=== PATIENT | female | born 1955 | race Caucasian/White ===

== ENCOUNTER 2017-05-09 01:00 | Observation (INO) ==
[2017-05-09] MEDS ORDERED: SODIUM CHLORIDE 0.9% 1,000 ML IV STA (01:17)
[2017-05-09 02:01] LABS: Basophils % 0.3 % (0.0-0.8); Eosinophils # 0.1 10*3/uL (0.0-0.87); Eosinophils % 1.9 % (0.00-10.9); Hematocrit 27.4 VOL% (35.7-47.0); Hemoglobin 8.1 GM/DL (12.0-16.0); Immature Granulocytes % 0.3 %; Immature Granulocytes Absolute 0.02 #; Lymphocytes # 1.1 10*3/uL (1.4-4.0); Mean Corpuscular HGB Conc 29.6 GM/DL (32-36); Mean Corpuscular Hemoglobin 26 PG (27-34); Mean Corpuscular Volume 88.4 FL (87-102); Mean Platelet Volume 10.1 FL (9.6-12.0); Monocytes # 0.6 10*3/uL (0.11-0.8); Monocytes % 7.7 % (1.7-12.7); Neutrophils # 5.5 10*3/uL (1.4-7.4); Neutrophils % 74.8 % (38.7-73.9); Platelet Count 305 T/CUMM (130-400); Red Cell Distribution Width 20.6 % (9.3-17.3); White Blood Count 7.3 T/CUMM (4-12)
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
[2017-05-09 02:21] LABS: Apearance,Urine CLEAR (Clear); Bilirubin,Urine Negative (Negative); Blood, Urine Negative (Negative); Glucose,Urine (UA) Negative (Negative); Hyaline Casts,Urine 2 /LPF (0-3); Ketones,Urine Negative (Negative); Mucus,Urine Occasional /LPF (Occasional); Nitrite,Urine Negative (Negative); Protein,Urine Negative; Urine Color Straw (Yellow); Urine Specific Gravity 1.012 (1.001-1.035); Urine Urobilinogen < 2.0 EU/DL (0.2-1.0); WBC,Urine <1 /HPF (0-6)
[2017-05-09 02:24] LABS: Alanine Aminotransferase 13 U/L (13-56); Albumin 3.5 G/DL (3.4-5.0); Alkaline Phosphatase 68 U/L (45-117); Aspartate Amino Transferase 10 U/L (0-37); Bilirubin,Total < 0.39 MG/DL (0.2-1.0); Blood Urea Nitrogen 55 MG/DL (7-18); Calcium 8.8 MG/DL (8.5-10.1); Glucose 94 MG/DL (74-106); Osmolality,Calculated 297.1 MOS/KG (273-304); Potassium 4.7 MMOL/L (3.5-5.1); Sodium 142 MMOL/L (136-145); Total Protein 6.8 G/DL (6.4-8.3); Troponin I Only < 0.015 NG/ML (0.00-0.045)
[2017-05-09 03:15] LABS: Ammonia 24 UMOL/L (11-32)
[2017-05-09 03:17] LABS: Barbiturates Screen,Urine Negative (Negative); Benzodiazepines Screen,Urine Positive (Negative); Cannabinoid Screen,Urine Negative (Negative); Opiate Screen,Urine Positive (Negative); Phencyclidine Screen,Urine Negative (Negative)
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
[2017-05-09] MEDS ORDERED: ACETAMINOPHEN 325 MG TABLET PO PRN (04:25)
[2017-05-09] MEDS ORDERED: ONDANSETRON 4 MG/2 ML VIAL IV PRN (04:25)
[2017-05-09] MEDS ORDERED: SODIUM CHLORIDE 0.45% 1,000 ML IV SCH (04:30)
--- NOTE | 2017-05-09 05:57 | EKG Report ---
Stationary ECG Study [facility] ER Test Date: 05/09/2017 1:18:35 AM Pat Name: KATHERINE LLOYD Department: Room: 527 Gender: F Director Of [employer]: : 1955 Requested by: Pedro Pablo Rouse Order Number: [id number] Emilie MD: KIMBERLYN BACON Intervals [place] Rate: 79 P: 80 OR: 164 QRS: 1 QRSD: 110 T: 100 QT: 383 QTc: 418 Interpretive Statements SINUS RHYTHM Electronically Signed On 05-09-17 17:22:19 CDT by KIMBERLYN BACON [email or web address]
--- NOTE | 2017-05-09 07:09 | CT Report ---
History is mental status changes Comparison 11/15/2016 The ventricles are normal in size. No acute intracranial hemorrhage, mass effect, or evidence of acute cortical stroke seen. Impression: No acute intracranial pathology seen. The CT exam was performed using one or more of the following dose reduction techniques: Automated exposure control, adjustment of the mA and/or kV according to patient size, or use of iterative reconstruction technique. PROCEDURE INTERPRETED AT [facility] DEPARTMENT OF RADIOLOGY Final Report Signed by: Dr. Margareth Treviño
--- NOTE | 2017-05-09 07:41 | XRay Report ---
History is altered mental status Comparison 04/19/2017 Heart is mildly enlarged with a large hiatal hernia present. Patient is rotated No congestive failure or confluent infiltrates seen. Minimal basilar scarring again seen. Chronic rib fractures present Impression: 1. Mild cardiomegaly 2. Large hiatal hernia PROCEDURE INTERPRETED AT [facility] DEPARTMENT OF RADIOLOGY Final Report Signed by: Dr. Margareth Treviño
[2017-05-09 08:04] LABS: Calcium 8.1 MG/DL (8.5-10.1); Potassium 4.9 MMOL/L (3.5-5.1)
[2017-05-09] MEDS ORDERED: ENOXAPARIN 30 MG/0.3 ML SYRINGE SUBCUT SCH (09:00)
[2017-05-09] MEDS ORDERED: PANTOPRAZOLE 40 MG TABLET PO SCH (09:00)
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
[2017-05-09 16:32] VITALS: BP 115/77
== END 2017-05-09 18:00 | disposition home or self-care (01) ==
LOC: EDBD → EDUNIT# → N.ED 01:00 → N.EDINP 01:00 → SUATTDRO 04:25 → N.5E 05:39
PROVIDERS: ADMIT Internal Medicine; ATTEND Internal Medicine Nephrology

== ENCOUNTER 2018-04-24 09:59 | Inpatient (IN) ==
[2018-04-24] MEDS ORDERED: SODIUM CHLORIDE 0.9% 1,000 ML IV STA (11:26)
[2018-04-24 11:52] LABS: Basophils % 0.4 % (0.0-0.8); Eosinophils # 0.2 10*3/uL (0.0-0.87); Eosinophils % 2.2 % (0.00-10.9); Hematocrit 31.8 VOL% (35.7-47.0); Hemoglobin 9.9 GM/DL (12.0-16.0); Immature Granulocytes % 0.4 %; Immature Granulocytes Absolute 0.03 #; Lymphocytes % 15.1 % (21.3-54.2); Mean Corpuscular HGB Conc 31.1 GM/DL (32-36); Mean Corpuscular Hemoglobin 29 PG (27-34); Mean Corpuscular Volume 92.2 FL (87-102); Mean Platelet Volume 9.9 FL (9.6-12.0); Monocytes # 0.6 10*3/uL (0.11-0.8); Monocytes % 8.2 % (1.7-12.7); Neutrophils % 73.7 % (38.7-73.9); Platelet Count 263 T/CUMM (130-400); Red Blood Count 3.45 MC/CUMM (3.8-5.5); Red Cell Distribution Width 13.1 % (9.3-17.3); White Blood Count 6.7 T/CUMM (4-12)
[2018-04-24 12:00] LABS: INR 0.9; PT Patient Result 9.8 SECS; Partial Thromboplastin Time 27.5 SECS (0-40)
[2018-04-24 12:15] LABS: Apearance,Urine CLEAR (Clear); Bilirubin,Urine Negative (Negative); Blood, Urine Negative (Negative); Glucose,Urine (UA) Negative (Negative); Ketones,Urine Negative (Negative); Mucus,Urine Occasional /LPF (Occasional); Nitrite,Urine Negative (Negative); Protein,Urine Negative; RBC,Urine <1 /HPF (0-4); Squamous Epithelial Cell,Urine Occasional /HPF (0-10); Urine Color Yellow (Yellow); Urine Urobilinogen < 2.0 EU/DL (0.2-1.0); WBC,Urine 1 /HPF (0-6)
[2018-04-24 12:21] LABS: Alanine Aminotransferase 22 U/L (13-56); Albumin 3.3 G/DL (3.4-5.0); Alkaline Phosphatase 104 U/L (45-117); Aspartate Amino Transferase 42 U/L (0-37); Bilirubin,Total < 0.39 MG/DL (0.2-1.0); Blood Urea Nitrogen 25 MG/DL (7-18); Calcium 9.3 MG/DL (8.5-10.1); Glucose 91 MG/DL (74-106); Osmolality,Calculated 278.7 MOS/KG (273-304); Potassium 5.1 MMOL/L (3.5-5.1); Sodium 138 MMOL/L (136-145); Total Protein 7.6 G/DL (6.4-8.3)
[2018-04-24 12:31] LABS: Free T4 (Free Thyroxine) 0.79 NG/DL (0.76-1.46); Thyroid Stimulating Hormone 0.725 uIU/ml (0.358-3.74)
[2018-04-24] MEDS ORDERED: ALBUTEROL/IPRATROPIUM 3 ML NEB RESP TX PRN (15:52)
[2018-04-24] MEDS ORDERED: ALBUTEROL 2.5 MG/3 ML NEB RESP TX PRN (15:54)
[2018-04-24] MEDS ORDERED: cefTRIAXone 1,000 MG VIAL ONE (16:08)
[2018-04-24] MEDS ORDERED: methylPREDNISolone SOD SUC 40 MG/1 ML VIAL ONE (16:09)
[2018-04-24] MEDS: methylPREDNISolone SOD SUC 40 MG/1 ML VIAL IV SCH ×2 (16:13→23:25)
[2018-04-24] MEDS: cefTRIAXone 1,000 MG in SYRINGE 1 EACH IV SCH (16:27)
[2018-04-24] MEDS: AZITHROMYCIN INJ 500 MG in SODIUM CHLORIDE 0.9% 250 ML IV SCH (16:29)
[2018-04-24] MEDS ORDERED: IBUPROFEN 800 MG TABLET PO PRN (16:48)
[2018-04-24] MEDS: SODIUM CHLORIDE 0.45% 1,000 ML IV SCH (18:20)
[2018-04-24] MEDS: HEPARIN 5,000 UNIT/1 ML VIAL SUBCUT SCH (18:31)
[2018-04-24] MEDS ORDERED: MORPHINE 4 MG/1 ML VIAL IV ONE (20:56)
[2018-04-24] MEDS: ZALEPLON 5 MG CAPSULE PO PRN (21:50)
[2018-04-24] MEDS: ARIPiprazole 5 MG TABLET PO SCH (21:51)
[2018-04-24] MEDS: guaiFENesin/DM ER 600-30 MG TABLET PO SCH (21:51)
[2018-04-25] MEDS: HEPARIN 5,000 UNIT/1 ML VIAL SUBCUT SCH ×3 (03:15→17:58)
[2018-04-25] MEDS: SODIUM CHLORIDE 0.45% 1,000 ML IV SCH ×2 (06:24→20:22)
[2018-04-25 08:55] LABS: Hematocrit 30.2 VOL% (35.7-47.0); Hemoglobin 9.6 GM/DL (12.0-16.0); Immature Granulocytes % 0.7 %; Immature Granulocytes Absolute 0.03 #; Lymphocytes # 0.4 10*3/uL (1.4-4.0); Lymphocytes % 8.3 % (21.3-54.2); Mean Corpuscular HGB Conc 31.8 GM/DL (32-36); Mean Corpuscular Hemoglobin 28 PG (27-34); Mean Corpuscular Volume 88.3 FL (87-102); Mean Platelet Volume 10.1 FL (9.6-12.0); Monocytes % 0.9 % (1.7-12.7); Neutrophils # 4.1 10*3/uL (1.4-7.4); Neutrophils % 90.1 % (38.7-73.9); Platelet Count 257 T/CUMM (130-400); Red Blood Count 3.42 MC/CUMM (3.8-5.5); Red Cell Distribution Width 12.6 % (9.3-17.3); White Blood Count 4.6 T/CUMM (4-12)
[2018-04-25] MEDS: LISINOPRIL/HCTZ 20-12.5 MG TABLET PO SCH (09:05)
[2018-04-25] MEDS: methylPREDNISolone SOD SUC 40 MG/1 ML VIAL IV SCH ×3 (09:05→23:30)
[2018-04-25] MEDS: MULTIVITAMIN (CENTRUM) TABLET PO SCH (09:05)
[2018-04-25] MEDS: guaiFENesin/DM ER 600-30 MG TABLET PO SCH ×2 (09:05→22:36)
[2018-04-25] MEDS: amLODIPine 10 MG TABLET PO SCH (09:05)
[2018-04-25 09:35] LABS: Alanine Aminotransferase 21 U/L (13-56); Albumin 2.9 G/DL (3.4-5.0); Alkaline Phosphatase 91 U/L (45-117); Aspartate Amino Transferase 26 U/L (0-37); Bilirubin,Total < 0.39 MG/DL (0.2-1.0); Blood Urea Nitrogen 27 MG/DL (7-18); Calcium 8.7 MG/DL (8.5-10.1); Glucose 121 MG/DL (74-106); Osmolality,Calculated 284.4 MOS/KG (273-304); Potassium 5.1 MMOL/L (3.5-5.1); Sodium 140 MMOL/L (136-145); Total Protein 7.1 G/DL (6.4-8.3)
[2018-04-25] MEDS ORDERED: ACETAMINOPHEN 325 MG TABLET PO PRN (09:44)
[2018-04-25] MEDS: ACETAMINOPHEN 325 MG TABLET PO PRN (12:03)
[2018-04-25] MEDS: AZITHROMYCIN INJ 500 MG in SODIUM CHLORIDE 0.9% 250 ML IV SCH (16:05)
[2018-04-25] MEDS: cefTRIAXone 1,000 MG in SYRINGE 1 EACH IV SCH (16:09)
[2018-04-25] MEDS: ARIPiprazole 5 MG TABLET PO SCH (22:36)
[2018-04-25] MEDS: ZALEPLON 5 MG CAPSULE PO PRN (22:37)
[2018-04-26] MEDS: ACETAMINOPHEN 325 MG TABLET PO PRN (03:17)
[2018-04-26] MEDS: HEPARIN 5,000 UNIT/1 ML VIAL SUBCUT SCH ×3 (03:19→18:20)
[2018-04-26 07:53] LABS: Basophils % 0.1 % (0.0-0.8); Hemoglobin 9.4 GM/DL (12.0-16.0); Immature Granulocytes % 0.6 %; Immature Granulocytes Absolute 0.06 #; Lymphocytes # 0.6 10*3/uL (1.4-4.0); Lymphocytes % 6.6 % (21.3-54.2); Mean Corpuscular HGB Conc 32.4 GM/DL (32-36); Mean Corpuscular Hemoglobin 28 PG (27-34); Mean Corpuscular Volume 87.6 FL (87-102); Mean Platelet Volume 10.1 FL (9.6-12.0); Monocytes # 0.2 10*3/uL (0.11-0.8); Monocytes % 2.4 % (1.7-12.7); NRBC # 0.02 10*3/uL; Neutrophils # 8.6 10*3/uL (1.4-7.4); Neutrophils % 90.3 % (38.7-73.9); Platelet Count 271 T/CUMM (130-400); Red Blood Count 3.31 MC/CUMM (3.8-5.5); Red Cell Distribution Width 12.9 % (9.3-17.3); White Blood Count 9.5 T/CUMM (4-12)
[2018-04-26] MEDS: methylPREDNISolone SOD SUC 40 MG/1 ML VIAL IV SCH (08:34)
[2018-04-26] MEDS: AZITHROMYCIN 250 MG TABLET PO SCH (08:34)
[2018-04-26] MEDS: MULTIVITAMIN (CENTRUM) TABLET PO SCH (08:35)
[2018-04-26] MEDS: amLODIPine 10 MG TABLET PO SCH (08:35)
[2018-04-26] MEDS: LISINOPRIL/HCTZ 20-12.5 MG TABLET PO SCH (08:35)
[2018-04-26] MEDS: guaiFENesin/DM ER 600-30 MG TABLET PO SCH ×2 (08:35→20:53)
[2018-04-26 08:44] LABS: Alanine Aminotransferase 14 U/L (13-56); Albumin 3.2 G/DL (3.4-5.0); Alkaline Phosphatase 79 U/L (45-117); Aspartate Amino Transferase 14 U/L (0-37); Bilirubin,Total < 0.39 MG/DL (0.2-1.0); Blood Urea Nitrogen 34 MG/DL (7-18); Calcium 8.6 MG/DL (8.5-10.1); Glucose 129 MG/DL (74-106); Osmolality,Calculated 284.7 MOS/KG (273-304); Potassium 4.8 MMOL/L (3.5-5.1); Sodium 138 MMOL/L (136-145)
[2018-04-26] MEDS: DIAZEPAM 5 MG TABLET PO PRN ×2 (09:55→20:53)
[2018-04-26] MEDS: SODIUM CHLORIDE 0.45% 1,000 ML IV SCH ×4 (10:36→23:09)
[2018-04-26] MEDS: CARVEDILOL 6.25 MG TABLET PO SCH ×4 (11:13→20:53)
[2018-04-26 11:28] LABS: Folate 17.8 NG/ML (5.4-24.0)
[2018-04-26] MEDS: cefTRIAXone 1,000 MG in SYRINGE 1 EACH IV SCH (16:51)
[2018-04-26] MEDS: ARIPiprazole 5 MG TABLET PO SCH (20:53)
[2018-04-26] MEDS: ZALEPLON 5 MG CAPSULE PO PRN (23:09)
[2018-04-27] MEDS: HEPARIN 5,000 UNIT/1 ML VIAL SUBCUT SCH ×2 (02:56→11:20)
[2018-04-27 08:14] LABS: Basophils % 0.1 % (0.0-0.8); Eosinophils % 0.1 % (0.00-10.9); Hematocrit 29.3 VOL% (35.7-47.0); Hemoglobin 9.5 GM/DL (12.0-16.0); Immature Granulocytes Absolute 0.09 #; Lymphocytes # 1.5 10*3/uL (1.4-4.0); Lymphocytes % 16.8 % (21.3-54.2); Mean Corpuscular HGB Conc 32.4 GM/DL (32-36); Mean Corpuscular Hemoglobin 28 PG (27-34); Mean Corpuscular Volume 87.7 FL (87-102); Mean Platelet Volume 9.4 FL (9.6-12.0); Monocytes # 0.9 10*3/uL (0.11-0.8); Monocytes % 10.3 % (1.7-12.7); Neutrophils # 6.2 10*3/uL (1.4-7.4); Neutrophils % 71.7 % (38.7-73.9); Platelet Count 255 T/CUMM (130-400); Red Blood Count 3.34 MC/CUMM (3.8-5.5); Red Cell Distribution Width 13.1 % (9.3-17.3); White Blood Count 8.7 T/CUMM (4-12)
[2018-04-27 08:31] LABS: Albumin 3.2 G/DL (3.4-5.0); Bilirubin,Total 0.4 MG/DL (0.2-1.0); Calcium 8.8 MG/DL (8.5-10.1); Osmolality,Calculated 283.5 MOS/KG (273-304); Potassium 4.6 MMOL/L (3.5-5.1)
[2018-04-27] MEDS: CARVEDILOL 6.25 MG TABLET PO SCH (09:28)
[2018-04-27] MEDS: guaiFENesin/DM ER 600-30 MG TABLET PO SCH (09:28)
[2018-04-27] MEDS: AZITHROMYCIN 250 MG TABLET PO SCH (09:28)
[2018-04-27] MEDS: MULTIVITAMIN (CENTRUM) TABLET PO SCH (09:28)
[2018-04-27] MEDS: amLODIPine 10 MG TABLET PO SCH (09:28)
[2018-04-27] MEDS: DIAZEPAM 5 MG TABLET PO PRN (09:32)
[2018-04-27 12:33] VITALS: BP 114/77
[2018-05-17] MEDS ORDERED: CYANOCOBALAMIN 1000 MCG/1 ML VIAL IM SCH (09:00)
== END 2018-04-27 15:43 | disposition home or self-care (01) | DRG 194 ==
LOC: N.ED 09:59 → SUATTDRO 16:46 → N.EDINP 16:46 → N.5E 17:14
PROVIDERS: ADMIT Internal Medicine; ATTEND Internal Medicine

== ENCOUNTER 2020-06-10 12:40 | Inpatient (IN) ==
[2020-06-10 13:24] LABS: Basophils # 0.1 10*3/uL (0.0-0.2); Basophils % 0.4 % (0.0-0.8); Eosinophils % 0.1 % (0.00-10.9); Immature Granulocytes % 0.6 %; Immature Granulocytes Absolute 0.07 #; Lymphocytes # 0.6 10*3/uL (1.4-4.0); Lymphocytes % 5.4 % (21.3-54.2); Mean Corpuscular Volume 83.9 FL (87-102); Mean Platelet Volume 10.1 FL (9.6-12.0); Monocytes % 3.1 % (1.7-12.7); Neutrophils % 90.4 % (38.7-73.9); Platelet Count 331 T/CUMM (130-400); Red Blood Count 2.98 MC/CUMM (3.8-5.5); Red Cell Distribution Width 16.5 % (9.3-17.3); White Blood Count 11.5 T/CUMM (4-12)
[2020-06-10 13:31] LABS: PT Patient Result 10.6 SECS (9.8-11.9); Partial Thromboplastin Time 23.8 SECS (23.9-33.8)
[2020-06-10] MEDS ORDERED: ONDANSETRON 4 MG/2 ML VIAL IV ONE (13:40)
[2020-06-10 13:43] LABS: Alanine Aminotransferase 17 U/L (13-56); Albumin 3.7 G/DL (3.4-5.0); Alkaline Phosphatase 106 U/L (45-117); Aspartate Amino Transferase 12 U/L (0-37); Bilirubin,Total < 0.39 MG/DL (0.2-1.0); Blood Urea Nitrogen 15 MG/DL (7-18); Calcium 9.1 MG/DL (8.5-10.1); Estimated Glom Filtration Rate 26 ML/MIN; Glucose 108 MG/DL (74-106); Total Protein 8.4 G/DL (6.4-8.3)
[2020-06-10] MEDS ORDERED: GLUCAGON 1 MG VIAL IM PRN (14:17)
[2020-06-10] MEDS ORDERED: DEXTROSE 50% 25 GM/50 ML VIAL IV PRN (14:17)
[2020-06-10] MEDS ORDERED: SODIUM CHLORIDE 0.9% 1,000 ML IV PRN (14:21)
[2020-06-10] MEDS ORDERED: DIAZEPAM 5 MG TABLET PO PRN (14:24)
[2020-06-10] MEDS ORDERED: SODIUM CHLORIDE 0.9% 1,000 ML IV SCH (14:30)
[2020-06-10] MEDS ORDERED: PANTOPRAZOLE 40 MG VIAL IV SCH (14:30)
[2020-06-10 14:40] LABS: % Iron Saturation 2.6 % (18-50); Ferritin 3.1 ng/ml (8-252)
[2020-06-10 14:41] LABS: Microcytosis 1+; Platelet Estimate Normal
[2020-06-10 14:43] LABS: Hypochromasia 1+; Polychromasia 1+
[2020-06-10 14:52] LABS: Folate > 24.0 NG/ML (5.4-24.0); Vitamin B12 520 PG/ML (211-911)
[2020-06-10] MEDS: ONDANSETRON 4 MG/2 ML VIAL IV PRN ×2 (16:58→21:49)
[2020-06-10 20:18] LABS: Hematocrit 25.2 VOL% (35.7-47.0); Hemoglobin 7.1 GM/DL (12.0-16.0)
[2020-06-10] MEDS ORDERED: PANTOPRAZOLE 40 MG VIAL IV ONE (20:45)
[2020-06-10] MEDS ORDERED: PANTOPRAZOLE INJ 80 MG in SODIUM CHLORIDE 0.9% 100 ML IV ONE (21:00)
[2020-06-10] MEDS ORDERED: ZOLPIDEM 10 MG PO SCH (21:00)
[2020-06-10] MEDS: ZOLPIDEM 5 MG TABLET PO SCH (23:59)
[2020-06-11 04:17] LABS: Hematocrit 25.3 VOL% (35.7-47.0); Hemoglobin 7.1 GM/DL (12.0-16.0)
[2020-06-11 05:40] LABS: Basophils % 0.6 % (0.0-0.8); Eosinophils % 0.6 % (0.00-10.9); Immature Granulocytes % 0.3 %; Immature Granulocytes Absolute 0.02 #; Lymphocytes # 0.9 10*3/uL (1.4-4.0); Lymphocytes % 14.7 % (21.3-54.2); Mean Corpuscular HGB Conc 25.8 GM/DL (32-36); Mean Corpuscular Volume 92.8 FL (87-102); Mean Platelet Volume 10.8 FL (9.6-12.0); Monocytes % 8.2 % (1.7-12.7); Neutrophils % 75.6 % (38.7-73.9); Platelet Count 190 T/CUMM (130-400); Red Blood Count 2.92 MC/CUMM (3.8-5.5); Red Cell Distribution Width 16.1 % (9.3-17.3); White Blood Count 6.2 T/CUMM (4-12)
[2020-06-11 05:51] LABS: Calcium 9.4 MG/DL (8.5-10.1)
[2020-06-11] MEDS: ONDANSETRON 4 MG/2 ML VIAL IV PRN (06:19)
[2020-06-11 06:20] LABS: Hematocrit 24.4 VOL% (35.7-47.0)
[2020-06-11 06:45] LABS: Anisocytosis 1+; Platelet Estimate Normal
[2020-06-11 06:46] LABS: Spherocytes Few
[2020-06-11] MEDS ORDERED: METOCLOPRAMIDE 10 MG/2 ML VIAL ONE (08:04)
[2020-06-11 08:10] LABS: Hematocrit 24.8 VOL% (35.7-47.0)
[2020-06-11] MEDS ORDERED: amLODIPine 10 MG TABLET PO SCH (09:00)
[2020-06-11] MEDS ORDERED: propofoL 200 MG/20 ML VIAL IV ONE (09:07)
[2020-06-11] MEDS ORDERED: LIDOCAINE 2% 5 ML VIAL ONE (09:07)
[2020-06-11] MEDS ORDERED: ONDANSETRON 4 MG/2 ML VIAL ONE (09:07)
[2020-06-11] MEDS ORDERED: ETOMIDATE 40 MG/20 ML VIAL IV ONE (09:08)
[2020-06-11] MEDS: ARIPiprazole 10 MG TABLET PO SCH (09:44)
[2020-06-11] MEDS: MULTIVITAMIN (CENTRUM) TABLET PO SCH (09:44)
[2020-06-11] MEDS: PARoxetine 20 MG TABLET PO SCH (09:45)
[2020-06-11 11:07] LABS: Hematocrit 28.4 VOL% (35.7-47.0); Hemoglobin 8.4 GM/DL (12.0-16.0)
[2020-06-11] MEDS: METOPROLOL TARTRATE 25 MG TABLET PO SCH ×2 (12:50→20:37)
[2020-06-11 17:12] LABS: Hematocrit 32.7 VOL% (35.7-47.0)
[2020-06-11 17:15] LABS: Hemoglobin 9.8 GM/DL (12.0-16.0)
[2020-06-11] MEDS: ZOLPIDEM 5 MG TABLET PO SCH (20:37)
[2020-06-11] MEDS: ACETAMINOPHEN 325 MG TABLET PO PRN (22:47)
[2020-06-11 23:00] LABS: Hematocrit 33.1 VOL% (35.7-47.0); Hemoglobin 9.9 GM/DL (12.0-16.0)
[2020-06-12 04:14] LABS: Basophils # 0.1 10*3/uL (0.0-0.2); Basophils % 0.8 % (0.0-0.8); Eosinophils # 0.2 10*3/uL (0.0-0.87); Eosinophils % 2.9 % (0.00-10.9); Hematocrit 31.3 VOL% (35.7-47.0); Hemoglobin 9.2 GM/DL (12.0-16.0); Immature Granulocytes % 0.3 %; Immature Granulocytes Absolute 0.02 #; Lymphocytes # 1.8 10*3/uL (1.4-4.0); Lymphocytes % 28.3 % (21.3-54.2); Mean Corpuscular HGB Conc 29.4 GM/DL (32-36); Mean Corpuscular Volume 85.1 FL (87-102); Mean Platelet Volume 10.9 FL (9.6-12.0); Monocytes % 9.5 % (1.7-12.7); Neutrophils % 58.2 % (38.7-73.9); Platelet Count 237 T/CUMM (130-400); Red Blood Count 3.68 MC/CUMM (3.8-5.5); Red Cell Distribution Width 15.8 % (9.3-17.3); White Blood Count 6.2 T/CUMM (4-12)
[2020-06-12 04:40] LABS: Calcium 9.4 MG/DL (8.5-10.1); Osmolality,Calculated 280.1 MOS/KG (273-304)
[2020-06-12] MEDS: PARoxetine 20 MG TABLET PO SCH (09:39)
[2020-06-12] MEDS: METOPROLOL TARTRATE 25 MG TABLET PO SCH ×2 (09:39→22:03)
[2020-06-12] MEDS: ARIPiprazole 10 MG TABLET PO SCH (09:39)
[2020-06-12] MEDS: MULTIVITAMIN (CENTRUM) TABLET PO SCH (09:39)
[2020-06-12] MEDS: ACETAMINOPHEN 325 MG TABLET PO PRN ×2 (10:54→22:02)
[2020-06-12] MEDS: SUCRALFATE 1 GM TABLET PO SCH ×2 (11:59→17:38)
[2020-06-12] MEDS: PANTOPRAZOLE 40 MG TABLET PO SCH (17:38)
[2020-06-12] MEDS ORDERED: ZALEPLON 5 MG CAPSULE PO SCH (21:00)
[2020-06-13] MEDS: SUCRALFATE 1 GM TABLET PO SCH ×2 (01:06→07:21)
[2020-06-13 04:54] LABS: Basophils % 0.7 % (0.0-0.8); Eosinophils # 0.2 10*3/uL (0.0-0.87); Eosinophils % 3.6 % (0.00-10.9); Hemoglobin 9.6 GM/DL (12.0-16.0); Immature Granulocytes % 0.4 %; Immature Granulocytes Absolute 0.02 #; Lymphocytes # 1.4 10*3/uL (1.4-4.0); Lymphocytes % 25.5 % (21.3-54.2); Mean Corpuscular HGB Conc 29.2 GM/DL (32-36); Mean Corpuscular Volume 85.2 FL (87-102); Mean Platelet Volume 10.7 FL (9.6-12.0); Monocytes % 12.4 % (1.7-12.7); Neutrophils % 57.4 % (38.7-73.9); Platelet Count 229 T/CUMM (130-400); Red Blood Count 3.86 MC/CUMM (3.8-5.5); White Blood Count 5.5 T/CUMM (4-12)
[2020-06-13 05:25] LABS: Hematocrit 32.6 VOL% (35.7-47.0)
[2020-06-13 07:39] VITALS: BP 121/66
[2020-06-13] MEDS: MULTIVITAMIN (CENTRUM) TABLET PO SCH (08:23)
[2020-06-13] MEDS: ARIPiprazole 10 MG TABLET PO SCH (08:23)
[2020-06-13] MEDS: METOPROLOL TARTRATE 25 MG TABLET PO SCH (08:23)
[2020-06-13] MEDS: PANTOPRAZOLE 40 MG TABLET PO SCH (08:23)
[2020-06-13] MEDS: PARoxetine 20 MG TABLET PO SCH (08:23)
[2020-06-13] MEDS: ONDANSETRON 4 MG/2 ML VIAL IV PRN (08:24)
[2020-06-13 09:36] LABS: Calcium 9.1 MG/DL (8.5-10.1); Osmolality,Calculated 282.3 MOS/KG (273-304)
[2020-06-13] MEDS ORDERED: ASCORBIC ACID 500 MG TABLET PO SCH (21:00)
== END 2020-06-13 11:11 | disposition home or self-care (01) | DRG 378 ==
LOC: N.ED 12:40 → N.EDINP 14:17 → SUATTDRO 14:17 → N.EDINP 16:06 → N.5E 16:14
PROVIDERS: ADMIT Internal Medicine; ATTEND Internal Medicine

== ENCOUNTER 2020-06-16 19:45 | Inpatient (IN) ==
[2020-06-16] MEDS ORDERED: DEXMEDETOMIDINE 200 MCG in SODIUM CHLORIDE 0.9% 48 ML IV PRN (20:04)
[2020-06-16] MEDS ORDERED: NOREPINEPHRINE 8 MG in SODIUM CHLORIDE 0.9% 242 ML IV PRN (20:04)
[2020-06-16 20:07] LABS: Basophils # 0.1 10*3/uL (0.0-0.2); Basophils % 0.7 % (0.0-0.8); Eosinophils % 0.1 % (0.00-10.9); Hematocrit 46.1 VOL% (35.7-47.0); Hemoglobin 11.8 GM/DL (12.0-16.0); Immature Granulocytes % 6.3 %; Lymphocytes % 14.5 % (21.3-54.2); Mean Corpuscular HGB Conc 25.6 GM/DL (32-36); Mean Corpuscular Volume 97.1 FL (87-102); Mean Platelet Volume 11.3 FL (9.6-12.0); Monocytes % 6.4 % (1.7-12.7); NRBC # 0.41 10*3/uL; Platelet Count 375 T/CUMM (130-400); Red Blood Count 4.75 MC/CUMM (3.8-5.5); Red Cell Distribution Width 17.1 % (9.3-17.3); White Blood Count 20.5 T/CUMM (4-12)
[2020-06-16 20:17] LABS: ABG Base Excess -29.9 MMOL/L (-2.5-2.5); ABG HCO3 5.1 MMOL/L (20-26); ABG Oxygen Saturation 98.3 % (95-100); ABG PCO2 54.6 MM HG (35-48); ABG TCO2 7.6 MMOL/L (23-27); Allen Test Positive; Pt O2 Delivery Device Ventilator
[2020-06-16 20:19] LABS: ABG PH 6.706 (7.35-7.45)
[2020-06-16 20:25] LABS: Bilirubin,Urine Negative (Negative); Blood, Urine Large mg/dL (Negative); Glucose,Urine (UA) Negative (Negative); Ketones,Urine Negative (Negative); Mucus,Urine Occasional /LPF (Occasional); Nitrite,Urine Negative (Negative); Protein,Urine 100 MG/DL; RBC,Urine 1095 /HPF (0-4); Squamous Epithelial Cell,Urine Occasional /HPF (0-10); Urine Appearance CLOUDY (Clear); Urine Specific Gravity 1.021 (1.001-1.035); Urine Urobilinogen < 2.0 EU/DL (0.2-1.0)
[2020-06-16] MEDS ORDERED: SODIUM BICARBONATE 50 MEQ/50 ML VIAL IV ONE (20:26)
[2020-06-16 20:27] LABS: Urine Color Yellow (Yellow)
[2020-06-16] MEDS ORDERED: ROCURONIUM 100 MG/10 ML VIAL IV STA (20:29)
[2020-06-16] MEDS ORDERED: ETOMIDATE 20 MG/10 ML VIAL IV STA (20:29)
[2020-06-16 20:31] LABS: Barbiturates Screen,Urine Negative (Negative); Benzodiazepines Screen,Urine Positive (Negative); Cannabinoid Screen,Urine Negative (Negative); Opiate Screen,Urine Positive (Negative); Phencyclidine Screen,Urine Negative (Negative)
[2020-06-16 20:33] LABS: Atypical Lymphocytes 1+; Band Neutrophils 1 % (0-10); Burr Cells 3+; Lymphocytes 16 % (20-55); Nucleated Red Blood Cells 3 (0-5); Segmented Neutrophils 77 % (50-85); Total Cells Counted 100
[2020-06-16] MEDS ORDERED: PIPERACILLIN/TAZOBACTAM 3,375 MG in SODIUM CHLORIDE 0.9% 100 ML IV STA (20:38)
[2020-06-16] MEDS ORDERED: LACTATED RINGERS 1,000 ML IV ONE (20:38)
[2020-06-16 20:40] LABS: Albumin 2.8 G/DL (3.4-5.0); Calcium 8.4 MG/DL (8.5-10.1); Osmolality,Calculated 295.4 MOS/KG (273-304); Total Protein 7.4 G/DL (6.4-8.3)
[2020-06-16 20:42] LABS: Troponin I 0.111 NG/ML (0.00-0.045)
[2020-06-16 20:45] LABS: Salicylate < 2.8 MG/DL (2.8-20)
[2020-06-16 20:46] LABS: Acetaminophen < 2.0 UG/ML (10-30)
[2020-06-16] MEDS ORDERED: DEXTROSE 50% 25 GM/50 ML VIAL IV STA (20:46)
[2020-06-16] MEDS ORDERED: CALCIUM CHLORIDE 1,000 MG/10 ML SYRINGE IV STA (20:46)
[2020-06-16] MEDS ORDERED: INSULIN REGULAR 100 UNIT/ML IV STA (20:46)
[2020-06-16 20:55] LABS: INR 1.1; PT Patient Result 11.9 SECS (9.8-11.9); Partial Thromboplastin Time 71.8 SECS (23.9-33.8)
[2020-06-16 20:57] LABS: VBG Base Excess -24.1 MEQ/L (0-4); VBG HCO3 7.2 MEQ/L (24-28); VBG Oxygen Saturation 94.7 %; VBG PCO2 56.9 MMHG (41-51); VBG PH 6.823
[2020-06-16] MEDS ORDERED: STERILE WATER IV ONE (22:00)
[2020-06-16] MEDS ORDERED: SODIUM BICARB IV ONE (22:00)
[2020-06-16] MEDS ORDERED: ALBUTEROL/IPRATROPIUM 3 ML NEB RESP TX PRN (22:19)
[2020-06-16] MEDS ORDERED: ONDANSETRON 4 MG/2 ML VIAL IV PRN (22:19)
[2020-06-16] MEDS ORDERED: SODIUM CHLORIDE 0.9% 1,000 ML IV SCH (22:30)
[2020-06-16] MEDS ORDERED: ENOXAPARIN 40 MG/0.4 ML SYRINGE SUBCUT SCH (22:30)
[2020-06-16] MEDS: NOREPINEPHRINE 8 MG in SODIUM CHLORIDE 0.9% 242 ML IV SCH (22:42)
[2020-06-16 23:14] LABS: ABG Base Excess -16.4 MMOL/L (-2.5-2.5); ABG HCO3 12.1 MMOL/L (20-26); ABG Oxygen Saturation 87.3 % (95-100); ABG PCO2 39.1 MM HG (35-48); ABG PO2 64.1 MM HG (80-95); ABG TCO2 11.9 MMOL/L (23-27); Glucose Heart Surgery 112 MG/DL (74-106); Hematocrit Heart Surgery 37.1 PERCENT (37-47); Potassium Heart/CVR 4.4 MMOL/L (3.5-5.1)
[2020-06-17 00:55] LABS: Calcium 8.3 MG/DL (8.5-10.1); Osmolality,Calculated 310.1 MOS/KG (273-304)
[2020-06-17] MEDS: CLINDAMYCIN INJ 600 MG in PREMIX 1 EACH IV SCH ×3 (01:26→17:15)
[2020-06-17] MEDS: NOREPINEPHRINE 8 MG in SODIUM CHLORIDE 0.9% 242 ML IV SCH ×4 (02:26→12:11)
[2020-06-17 02:36] LABS: ABG Base Excess -16.6 MMOL/L (-2.5-2.5); ABG Oxygen Saturation 91.2 % (95-100); ABG PCO2 31.4 MM HG (35-48); ABG TCO2 10.5 MMOL/L (23-27); Allen Test Positive; Pt O2 Delivery Device Ventilator
[2020-06-17 02:38] LABS: ABG PH 7.164 (7.35-7.45)
[2020-06-17 04:11] LABS: Albumin 2.2 G/DL (3.4-5.0); Calcium 7.4 MG/DL (8.5-10.1); Osmolality,Calculated 312.1 MOS/KG (273-304); Total Protein 5.7 G/DL (6.4-8.3)
[2020-06-17 04:47] LABS: Basophils % 0.9 % (0.0-0.8); Eosinophils % 0.5 % (0.00-10.9); Hematocrit 42.9 VOL% (35.7-47.0); Hemoglobin 12.6 GM/DL (12.0-16.0); Immature Granulocytes % 7.9 %; Immature Granulocytes Absolute 0.34 #; Lymphocytes # 0.8 10*3/uL (1.4-4.0); Lymphocytes % 17.8 % (21.3-54.2); Mean Corpuscular HGB Conc 29.4 GM/DL (32-36); Mean Corpuscular Volume 85.5 FL (87-102); Mean Platelet Volume 10.3 FL (9.6-12.0); Monocytes % 2.8 % (1.7-12.7); NRBC # 1.63 10*3/uL; Neutrophils % 70.1 % (38.7-73.9); Platelet Count 202 T/CUMM (130-400); Red Blood Count 5.02 MC/CUMM (3.8-5.5); Red Cell Distribution Width 17.4 % (9.3-17.3); White Blood Count 4.3 T/CUMM (4-12)
[2020-06-17] MEDS ORDERED: SODIUM BICARBONATE 50 MEQ/50 ML VIAL IV ONE ×4 (05:08→21:35)
[2020-06-17 05:21] LABS: Band Neutrophils 6 % (0-10); Eosinophils 3 % (0-10); Lymphocytes 22 % (20-55); Metamyelocytes 3 %; Myelocytes 2 %; Nucleated Red Blood Cells 79 (0-5); Segmented Neutrophils 56 % (50-85); Total Cells Counted 100
[2020-06-17] MEDS ORDERED: LACTATED RINGERS 1,000 ML IV ONE ×2 (05:21→07:36)
[2020-06-17 05:22] LABS: Hypochromasia 1+; Microcytosis 1+; Polychromasia Slight; Smudge Cells Few
[2020-06-17 05:23] LABS: Giant Platelets Few
[2020-06-17] MEDS: SODIUM BICARB INJ 150 MEQ in DEXTROSE 5% 850 ML IV SCH ×5 (06:48→20:10)
[2020-06-17] MEDS: PHENYLEPHRINE DRIP 40 MG/250 ML PREMIX IV PRN ×3 (07:07→14:44)
[2020-06-17] MEDS ORDERED: CISATRACURIUM 200 MG in SODIUM CHLORIDE 0.9% 180 ML IV PRN ×2 (08:54→09:44)
[2020-06-17] MEDS ORDERED: MEPERIDINE 50 MG/1 ML VIAL IV PRN ×2 (08:55→09:44)
[2020-06-17] MEDS ORDERED: PANTOPRAZOLE 40 MG VIAL IV SCH (09:00)
[2020-06-17] MEDS ORDERED: ENOXAPARIN 30 MG/0.3 ML SYRINGE SUBCUT SCH (09:00)
[2020-06-17 09:37] LABS: ABG Base Excess -12.5 MMOL/L (-2.5-2.5); ABG HCO3 14.8 MMOL/L (20-26); ABG Oxygen Saturation 98.3 % (95-100); ABG PCO2 26.5 MM HG (35-48); ABG PH 7.294 (7.35-7.45); ABG TCO2 11.7 MMOL/L (23-27)
[2020-06-17] MEDS ORDERED: fentaNYL INJ 1,250 MCG in SODIUM CHLORIDE 0.9% 225 ML IV PRN (09:40)
[2020-06-17] MEDS ORDERED: MIDAZOLAM 2 MG/2 ML VIAL IV PRN (09:40)
[2020-06-17] MEDS ORDERED: fentaNYL 100 MCG/2 ML VIAL IV PRN (09:41)
[2020-06-17 09:54] LABS: INR 1.8; PT Patient Result 18.3 SECS (9.8-11.9); Partial Thromboplastin Time 48.4 SECS (23.9-33.8)
[2020-06-17] MEDS ORDERED: MIDAZOLAM 100 MG in SODIUM CHLORIDE 0.9% 80 ML IV SCH (10:00)
[2020-06-17 10:15] LABS: CKMB % 1.7 %
[2020-06-17 10:32] LABS: Troponin I 2.49 NG/ML (0.00-0.045)
[2020-06-17] MEDS: MIDAZOLAM 2 MG/2 ML VIAL IV ONE ×2 (10:46→11:33)
[2020-06-17] MEDS: PANTOPRAZOLE 40 MG VIAL IV SCH ×2 (11:12→21:30)
[2020-06-17] MEDS: NOREPINEPHRINE 16 MG in SODIUM CHLORIDE 0.9% 234 ML IV PRN ×3 (12:11→22:23)
[2020-06-17] MEDS: INSULIN REGULAR 100 UNIT/ML IV SCH ×4 (13:11→20:23)
[2020-06-17 15:51] LABS: INR 2.1; Partial Thromboplastin Time 55.5 SECS (23.9-33.8)
[2020-06-17] MEDS: HYDROCORTISONE 100 MG VIAL IV SCH ×2 (16:00→22:27)
[2020-06-17 16:04] LABS: Basophils # 0.1 10*3/uL (0.0-0.2); Basophils % 1.2 % (0.0-0.8); Eosinophils # 0.1 10*3/uL (0.0-0.87); Eosinophils % 1.3 % (0.00-10.9); Hematocrit 38.2 VOL% (35.7-47.0); Hemoglobin 11.2 GM/DL (12.0-16.0); Immature Granulocytes % 13.9 %; Immature Granulocytes Absolute 0.93 #; Lymphocytes # 0.6 10*3/uL (1.4-4.0); Lymphocytes % 9.4 % (21.3-54.2); Mean Corpuscular HGB Conc 29.3 GM/DL (32-36); Mean Corpuscular Volume 86.4 FL (87-102); Mean Platelet Volume 11.3 FL (9.6-12.0); Monocytes % 2.5 % (1.7-12.7); NRBC # 5.06 10*3/uL; Neutrophils % 71.7 % (38.7-73.9); Platelet Count 141 T/CUMM (130-400); Red Blood Count 4.42 MC/CUMM (3.8-5.5); Red Cell Distribution Width 17.7 % (9.3-17.3); White Blood Count 6.7 T/CUMM (4-12)
[2020-06-17 16:07] LABS: Calcium 6.3 MG/DL (8.5-10.1)
[2020-06-17 16:10] LABS: CKMB % 1.7 %
[2020-06-17 16:11] LABS: Band Neutrophils 5 % (0-10); Eosinophils 2 % (0-10); Lymphocytes 18 % (20-55); Metamyelocytes 4 %; Nucleated Red Blood Cells 102 (0-5); Segmented Neutrophils 67 % (50-85); Total Cells Counted 100
[2020-06-17 16:12] LABS: Anisocytosis Slight; Macrocytosis Slight; Microcytosis Slight; Platelet Estimate Adequate; Polychromasia 1+; Reactive Lymphocytes Slight
[2020-06-17 16:13] LABS: Troponin I 2.54 NG/ML (0.00-0.045)
[2020-06-17] MEDS ORDERED: POTASSIUM CHLORIDE RIDER 10 MEQ in PREMIX 1 EACH IV PRN (16:32)
[2020-06-17] MEDS: MINERAL OIL/PETROLATUM OPH OINT 3.5 GM TUBE BOTH EYES SCH ×2 (16:47→21:43)
[2020-06-17] MEDS: FLUDROCORTISONE 0.1 MG TABLET PER TUBE SCH ×2 (16:47→21:26)
[2020-06-17] MEDS: PHENYLEPHRINE INJ 160 MG in SODIUM CHLORIDE 0.9% 234 ML IV PRN (16:56)
[2020-06-17] MEDS: POTASSIUM CHLORIDE RIDER 20 MEQ in PREMIX 1 EACH IV PRN ×2 (17:09→19:04)
[2020-06-17] MEDS ORDERED: VASOPRESSIN 100 UNITS in SODIUM CHLORIDE 0.9% 95 ML IV PRN (21:05)
[2020-06-17 21:25] LABS: ABG Base Excess -17.6 MMOL/L (-2.5-2.5); ABG Oxygen Saturation 85.6 % (95-100); ABG PCO2 36.3 MM HG (35-48); ABG PO2 73.2 MM HG (80-95); ABG TCO2 10.8 MMOL/L (23-27); Glucose Heart Surgery 221 MG/DL (74-106); Hemoglobin Heart Surgery 9.3 G/DL (12.0-16.0); Potassium Heart/CVR 4.1 MMOL/L (3.5-5.1)
[2020-06-17 21:26] LABS: ABG PH 7.099 (7.35-7.45)
[2020-06-17] MEDS ORDERED: VASOPRESSIN 100 UNITS in SODIUM CHLORIDE 0.9% 95 ML IV SCH (21:30)
[2020-06-17 21:49] LABS: INR 2.7; PT Patient Result 27.7 SECS (9.8-11.9)
[2020-06-17 21:50] LABS: Basophils # 0.1 10*3/uL (0.0-0.2); Basophils % 1.4 % (0.0-0.8); Eosinophils # 0.1 10*3/uL (0.0-0.87); Eosinophils % 1.2 % (0.00-10.9); Hemoglobin 9.2 GM/DL (12.0-16.0); Immature Granulocytes % 19.5 %; Lymphocytes # 2.2 10*3/uL (1.4-4.0); Lymphocytes % 22.5 % (21.3-54.2); Mean Corpuscular HGB Conc 27.9 GM/DL (32-36); Mean Corpuscular Volume 90.4 FL (87-102); Mean Platelet Volume 12.5 FL (9.6-12.0); Monocytes % 1.5 % (1.7-12.7); NRBC # 8.96 10*3/uL; Neutrophils % 53.9 % (38.7-73.9); Platelet Count 110 T/CUMM (130-400); Red Blood Count 3.65 MC/CUMM (3.8-5.5); Red Cell Distribution Width 18.1 % (9.3-17.3); White Blood Count 9.7 T/CUMM (4-12)
[2020-06-17 22:01] LABS: Blood Urea Nitrogen 55 MG/DL (7-18); CKMB % 1.6 %; Calcium 8.6 MG/DL (8.5-10.1); Estimated Glom Filtration Rate 8 ML/MIN; Glucose 216 MG/DL (74-106); Osmolality,Calculated 317.1 MOS/KG (273-304)
[2020-06-17 22:05] LABS: Band Neutrophils 2 % (0-10); Eosinophils 5 % (0-10); Hypochromasia Slight; Lymphocytes 42 % (20-55); Metamyelocytes 4 %; Myelocytes 2 %; Nucleated Red Blood Cells 182 (0-5); Platelet Estimate Normal; Segmented Neutrophils 42 % (50-85)
[2020-06-17 22:06] LABS: Total Cells Counted 100
[2020-06-18] MEDS: INSULIN REGULAR 100 UNIT/ML IV SCH (00:15)
[2020-06-18] MEDS: CLINDAMYCIN INJ 600 MG in PREMIX 1 EACH IV SCH (00:16)
[2020-06-18] MEDS: PHENYLEPHRINE INJ 160 MG in SODIUM CHLORIDE 0.9% 234 ML IV PRN (00:53)
[2020-06-18 02:35] VITALS: BP 105/62
[2020-06-18] MEDS ORDERED: EPINEPHrine 1 MG/10 ML SYRINGE IV ONE (03:06)
[2020-06-18] MEDS: HYDROCORTISONE 100 MG VIAL IV SCH (04:42)
== END 2020-06-18 03:07 | disposition expired | DRG 917 ==
LOC: EDBD → EDUNIT# → N.ED 19:45 → SUATTDRO 22:19 → N.EDINP 22:19 → N.ICU 22:52
PROVIDERS: ADMIT Family Medicine; ATTEND Internal Medicine